=== PATIENT | female | born 1995 | race Caucasian/White ===

== ENCOUNTER 2018-02-27 13:29 | Emergency (ER) | payer BC ==
[2018-02-27] MEDS ORDERED: ZOFRAN ODT PO ONE (17:54)
[2018-02-27 18:32] LABS: Bilirubin,Urine NEG (Negative); Blood,Urine SM (Negative); Color,Urine Yellow (Yellow); Mucus,Urine 3+ /HPF; Protein,Urine <15 mg/dL mg/dL (Negative); Urobilinogen,Urine < 2.0 mg/dL (<2.0)
--- NOTE | 2018-02-27 18:53 | Emergency Department Report ---
ED N/V/D HPI - General Chief complaint: Abdominal Pain Stated complaint: DIARRHEA/TAPEWORMS Time Seen by Provider: 02/27/18 17:33 Source: patient Mode of arrival: Ambulatory Limitations: No Limitations - History of Present Illness Initial comments: 1 week of nausea and diarrhea. Patient is having anywhere from 5-7 episodes of diarrhea daily. It has progressively gotten better as the week has gone on. She also endorses 2 weeks of dysuria and urinary frequency. The patient is concerned that she could have a tapeworm. No recent travel outside the [place]. Hasn't been on any antibiotics. No sick contacts. - Related Data Previous Rx's Medication Instructions Recorded Last Taken Type Ciprofloxacin HCl [Cipro] 500 mg PO BID #6 tablet 02/27/18 Unknown Rx Ondansetron [Zofran Odt] 4 mg PO Q6HR PRN #10 tab.rapdis 02/27/18 Unknown Rx Allergies Allergy/AdvReac Type Severity Reaction Status Date / Time No Known Allergies Allergy Unverified 02/27/18 13:51 ED Review of Systems ROS: Stated complaint: DIARRHEA/TAPEWORMS Other details as noted in HPI Constitutional: denies: chills, fever Eyes: denies: eye pain, eye discharge, vision change ENT: denies: ear pain, throat pain Respiratory: denies: cough, shortness of breath, wheezing Cardiovascular: denies: chest pain, palpitations Endocrine: no symptoms reported Gastrointestinal: abdominal pain, nausea, diarrhea Genitourinary: dysuria, frequency. denies: urgency, discharge Musculoskeletal: denies: back pain, joint swelling, arthralgia Skin: denies: rash, lesions Neurological: denies: headache, weakness, paresthesias Psychiatric: denies: anxiety, depression Hematological/Lymphatic: denies: easy bleeding, easy bruising ED Past Medical Hx - Past Medical History Previous Medical History?: No - Surgical History Past Surgical History?: No - Social History Smoking Status: Never Smoker Substance Use Type: Alcohol - Medications Home Medications: Home Medications Medication Instructions Recorded Confirmed Last Taken Type Ciprofloxacin HCl [Cipro] 500 mg PO BID #6 tablet 02/27/18 Unknown Rx Ondansetron [Zofran Odt] 4 mg PO Q6HR PRN #10 tab.rapdis 02/27/18 Unknown Rx ED Physical Exam - General Limitations: No Limitations General appearance: alert, in no apparent distress - Head Head exam: Present: atraumatic, normocephalic - Eye Eye exam: Present: normal appearance - ENT ENT exam: Present: mucous membranes moist - Neck Neck exam: Present: normal inspection - Respiratory Respiratory exam: Present: normal lung sounds bilaterally. Absent: respiratory distress - Cardiovascular Cardiovascular Exam: Present: regular rate, normal rhythm. Absent: systolic murmur, diastolic murmur, rubs, gallop - GI/Abdominal GI/Abdominal exam: Present: soft, tenderness (mild LLQ), normal bowel sounds - Extremities Exam Extremities exam: Present: normal inspection - Back Exam Back exam: Present: normal inspection - Neurological Exam Neurological exam: Present: alert, oriented X3 - Psychiatric Psychiatric exam: Present: normal affect, normal mood - Skin Skin exam: Present: warm, dry, intact, normal color. Absent: rash ED Course Vital Signs 02/27/18 13:51 Temperature 97.8 F Pulse Rate 73 Respiratory 18 Rate Blood Pressure 106/67 O2 Sat by Pulse 99 Oximetry ED Medical Decision Making - Medical Decision Making 23-year-old female, otherwise healthy, that presents to the ER with diarrhea, abdominal pain, and urinary complaints. Patient appears to be clinically dehydrated. Vitals are stable. No risk factors for parasites from history. Likely patient suffering from an infectious diarrhea. Symptoms are improving. I instructed the patient on how to properly take loperamide to help with her stool frequency. Urinalysis shows trace hematuria. I'm concerned for a UTI. Will start patient on ciprofloxacin for dual coverage of possible intestinal/ urinary infectious etiologies. She is cleared for discharge. I admitted the patient as well. - Differential Diagnosis UTI, parasites, viral enterocolitis Critical care attestation.: If time is entered above; I have spent that time in minutes in the direct care of this critically ill patient, excluding procedure time. ED Disposition Clinical Impression: Diarrhea, UTI (urinary tract infection) Disposition: DC-01 TO HOME OR SELFCARE Is pt being admited?: No Does the pt Need Aspirin: No Condition: Stable Instructions: Abdominal Pain (ED) Prescriptions: Ciprofloxacin HCl [Cipro] 500 mg PO BID #6 tablet Ondansetron [Zofran Odt] 4 mg PO Q6HR PRN #10 tab.rapdis PRN Reason: Nausea And Vomiting Referrals: PRIMARY CARE,MD [Primary Care Provider] - 3-5 Days
[2018-02-27 19:23] VITALS: BP 103/71
== END 2018-02-27 19:23 | disposition home or self-care (01) ==
LOC: ED 13:29
DX: N39.0 Urinary tract infection, site not specified (principal)
CPT/HCPCS: 81001; 99283; Q0162

== ENCOUNTER 2022-04-11 16:37 | Emergency (ER) | payer BC, MEDICAID ==
[2022-04-11 16:43] VITALS: BP 121/80
--- NOTE | 2022-04-11 16:53 | Emergency Department Report ---
HPI - General Chief Complaint: Allergic Reaction Time Seen by Provider: 04/11/22 16:49 - HPI HPI: Room 2 Patient is a 27-year-old female present with a chief complaint of allergic reaction. The patient states at 14: 50 she had eaten some grapes and ksenia roximately 15: 11 she developed an allergic reaction which included diffuse pruritic rash, increased work of breathing and swelling of her tongue. EMS was called and administered epi, Decadron and Benadryl prior to arrival. Patient states she feels improved but her tongue still feels a little funny. Patient states she is allergic to cherries and apples and has had grapes in the past without difficulty but now believes she is allergic to them. Patient denies any other exposure ED Past Medical Hx - Past Medical History Previous Medical History?: No - Surgical History Additional Surgical History: - Family History Family history: no significant - Social History Smoking Status: Never Smoker Substance Use Type: None (Denies illicit drug use), Alcohol (Occasional) - Medications Home Medications: Home Medications Medication Instructions Recorded Confirmed Last Taken Type Ciprofloxacin HCl [Cipro] 500 mg PO BID #6 tablet 02/27/18 Unknown Rx Ondansetron [Zofran Odt] 4 mg PO Q6HR PRN #10 tab.rapdis 02/27/18 Unknown Rx EPINEPHrine [Epipen 2-Abbe] 0.3 mg IM ONCE PRN #0.6 ml 04/11/22 Unknown Rx Famotidine [Pepcid] 20 mg PO BID #6 tablet 04/11/22 Unknown Rx Prednisone [predniSONE 10 mg 10 mg PO .TAPER #1 04/11/22 Unknown Rx (6-Day Pack, 21 Tabs)] diphenhydrAMINE [Benadryl CAP] 50 mg PO Q6HR #24 capsule 04/11/22 Unknown Rx ED Review of Systems ROS: Stated complaint: ALLERGIC REACTION Other details as noted in HPI Constitutional: no symptoms reported Eyes: denies: eye pain ENT: other (Tongue swelling) Respiratory: other (Increased work of breathing) Cardiovascular: denies: chest pain Endocrine: no symptoms reported Gastrointestinal: denies: abdominal pain Genitourinary: denies: dysuria Musculoskeletal: denies: back pain Skin: rash, pruritus Neurological: denies: headache Physical Exam - Physical Exam Vital Signs: Vital Signs 04/11/22 16:41 Pulse Rate 74 Blood Pressure 121/80 [Left] O2 Sat by Pulse 99 Oximetry Physical Exam: GENERAL: The patient is well-developed well-nourished female lying on stretcher not appearing to be in acute distress. [] HEENT: Normocephalic. Atraumatic. Extraocular motions are intact. Patient has moist mucous membranes. NECK: Supple. No meningitic signs are noted. No stridor CHEST/LUNGS: Clear to auscultation. There is no respiratory distress noted. HEART/CARDIOVASCULAR: Regular. There is no tachycardia. There is no gallop rub or murmur. ABDOMEN: Abdomen is soft, nontender. Patient has normal bowel sounds. There is no abdominal distention. SKIN: There is scant evidence of urticaria to the nape of the neck NEURO: The patient is awake, alert, and oriented. The patient is cooperative. The patient has no focal neurologic deficits. The patient has normal speech. GCS 15 MUSCULOSKELETAL: There is no evidence of acute injury. ED Course Vital Signs 04/11/22 16:41 Pulse Rate 74 Blood Pressure 121/80 [Left] O2 Sat by Pulse 99 Oximetry - Reevaluation(s) Reevaluation #1: 04/11/22 18:18 Patient improved ED Medical Decision Making - Differential Diagnosis Acute allergic reaction Critical care attestation.: If time is entered above; I have spent that time in minutes in the direct care of this critically ill patient, excluding procedure time. ED Disposition Clinical Impression: Acute allergic reaction Disposition: 01 HOME / SELF CARE / HOMELESS Is pt being admited?: No Does the pt Need Aspirin: No Condition: Stable Instructions: How to Use an Auto-Injector Pen Additional Instructions: Return to the emergency department should you develop worsening symptoms, inability to tolerate food or liquids, high fever or any other concerns Prescriptions: diphenhydrAMINE [Benadryl CAP] 50 mg PO Q6HR #24 capsule EPINEPHrine [Epipen 2-Abbe] 0.3 mg IM ONCE PRN #0.6 ml PRN Reason: Anaphylaxis Famotidine [Pepcid] 20 mg PO BID #6 tablet Prednisone [predniSONE 10 mg (6-Day Pack, 21 Tabs)] 10 mg PO .TAPER #1 Referrals: CECIL BARBER MD [Staff Physician] - 3-5 Days (Dr. Barber is an tank riveter. Please follow-up with her for further evaluation) Time of Disposition: 18:20
[2022-04-11] MEDS ORDERED: FAMOTIDINE 20 MG/2 ML INJ IV ONE (16:54)
== END 2022-04-11 18:50 | disposition home or self-care (01) ==
LOC: ED 16:37
DX: T78.40XA Allergy, unspecified, initial encounter (principal); Z98.890 Other specified postprocedural states; Z72.89 Other problems related to lifestyle; Z91.018 Allergy to other foods; Z79.899 Other long term (current) drug therapy; X58.XXXA Exposure to other specified factors, initial encounter
CPT/HCPCS: 96374; 99283; J3490